=== PATIENT | female | born 1975 | race Caucasian/White ===

== ENCOUNTER 2016-12-17 18:07 | Emergency (ER) | payer MEDICAID ==
[~2016-12-17] VITALS: Ht 157.5 cm; Wt 57.5 kg
[~2016-12-17 18:07] MED LIST: AZIT250T94 PO; CIPR500T4 PO; HYDR-902 PO; IBUP-1542 PO; IBUP800T25 PO; PHEN-538 PO
[2016-12-17 18:15] VITALS: Ht 157.5 cm; Wt 57.5 kg
[2016-12-17] MEDS ORDERED: ACETAMINOPHEN 325 MG TAB PO ONE (20:00)
[2016-12-17] MEDS ORDERED: AMO500 PO (20:02)
[2016-12-17] MEDS ORDERED: IBUP-1542 PO (20:02)
--- NOTE | 2016-12-17 20:04 | ERD ---
ER Documentation Chief Complaint Date/Time DATE: 12/17/16 TIME: 20:03 Chief Complaint fever , body ache , headcahe , sore throat x 2 days HPI This 41-year-old female complains of fever, sore throat and body aches and bitemporal headache for the last 2 days. She denies cough, abdominal pain, urinary complaints, neck stiffness, rashes. ROS All systems reviewed and are negative except as per history of present illness. Medications Home Meds Active Scripts Amoxicillin* (Amoxicillin*) 500 Mg Cap, 500 MG PO TID for 10 Days, CAP Prov:BERNICE CASTILLO MD 12/17/16 Ibuprofen* (Motrin*) 600 Mg Tab, 600 MG PO Q6, #20 TAB Prov:BERNICE CASTILLO MD 12/17/16 Hydrocodone/Acetaminophen ([place] 10-325 Tablet) 1 Each Tablet, 1 TAB PO Q6H Y for PAIN, #7 TAB Prov:NIKKIOSISHANSTOLOS A. DO 04/19/16 Ibuprofen* (Motrin*) 800 Mg Tab, 800 MG PO Q6H Y for PAIN AND OR ELEVATED TEMP, #30 TAB Prov:LEKKOSISHANSTOLOS A. DO 04/19/16 Azithromycin* (Zithromax*) 250 Mg Tablet, 250 MG PO .SIVACK DIRECTED, #6 TAB TAKE 500 MG (2 TABS) THE FIRST DAY THEN 250 MG (1 TAB) DAYS 2-5 Prov:ISHAN QUICKSTOLOS A. DO 04/19/16 Phenazopyridine Hcl* (Pyridium*) 200 Mg Tab, 200 MG PO TID Y for burning with urination, #6 TAB Prov:MARLENE RAY DO 11/11/15 Ciprofloxacin Hcl* (Ciprofloxacin Hcl*) 500 Mg Tablet, 500 MG PO BID for 5 Days , TAB Prov:FLORMARLENE DO 11/11/15 Ibuprofen* (Motrin*) 600 Mg Tab, 600 MG PO Q6H Y for PAIN AND OR ELEVATED TEMP, #30 Prov:JAMIE HYATT PA-C 07/12/15 Ciprofloxacin Hcl* (Ciprofloxacin Hcl*) 500 Mg Tablet, 500 MG PO BID for 5 Days , TAB Prov:JAMIE HYATT PA-C 07/12/15 Allergies Allergies: Coded Allergies: No Known Drug Allergy (Verified Allergy, Unknown, 11/11/15) PMhx/Soc History of Surgery: No Anesthesia Reaction: No Hx Neurological Disorder: No Hx Respiratory Disorders: No Hx Cardiac Disorders: No Hx Psychiatric Problems: No Hx Miscellaneous Medical Probl: No Hx Alcohol Use: No Hx Substance Use: No Hx Tobacco Use: No Physical Exam Vitals Vital Signs Date Time Temp Pulse Resp B/P Pulse Ox O2 Delivery O2 Flow Rate FiO2 12/17/16 18:15 102.3 99 18 121/68 98 Physical Exam Const: [] Alert, [id number]. Head: Atraumatic Eyes: Normal Conjunctiva ENT: Normal External Ears, Nose and Mouth. TMs normal. Tonsils 3+ with erythema. Uvula midline and airway patent. There is tender anterior cervical lymphadenitis. Neck: Full range of motion..~ No meningismus. Resp: Clear to auscultation bilaterally Cardio: Regular rate and rhythm, no murmurs Abd: Soft, non tender, non distended. Normal bowel sounds Skin: No petechiae or rashes Back: No midline or flank tenderness Ext: No cyanosis, or edema Neur: Awake and alert Psych: Normal Mood and Affect Results 24 hrs Current Medications Medications (Trade) Dose Ordered Sig/Christine Route PRN Reason Start Time Stop Time Status Last Admin Dose Admin Acetaminophen (Tylenol Tab) 650 mg ONCE ONCE PO 12/17/16 20:00 12/17/16 20:01 DC Procedures/MDM Patient presents with signs of acute pharyngitis without evidence of abscess, airway obstruction, meningitis additional causes of present complaints. She will treated with amoxicillin and ibuprofen. She was given Tylenol here in the ED for her fever. The patient was stable with no new complaints during the ER course. Clinically, there is no current evidence to suggest meningitis, sepsis, acute abdomen, pneumonia, acute coronary syndrome, pulmonary embolism, or any other emergent condition appearing to require further evaluation or hospitalization. The patient should certainly return for any new or worsening symptoms per the aftercare instructions. They should otherwise follow-up with her primary care doctor for reevaluation this week. Departure Diagnosis: Primary Impression: Pharyngitis Pharyngitis/tonsillitis etiology: unspecified etiology Qualified Code: J02.9 - Pharyngitis, unspecified etiology Condition: Stable Patient Instructions: Fever Control (Adult), Pharyngitis, Strep (Presumed) Additional Instructions: Cheque otro vez con salazar doctor primario en el proximo moncada or regresa para mas o nueva simptomas. BERNICE CASTILLO MD December 17, 2016 20:04
[2016-12-17 20:27] VITALS: BP 123/65; PULSE 94; TEMP 101.6
== END 2016-12-17 20:27 | disposition home or self-care (01) ==
LOC: FTE 18:07
DX: J02.9 Acute pharyngitis, unspecified (principal)
CPT/HCPCS: Z7502; Z7610; 99283

== ENCOUNTER 2018-01-28 11:26 | Emergency (ER) | END 2018-01-28 13:40 | disposition home or self-care (01) ==

== ENCOUNTER 2018-04-21 14:51 | Emergency (ER) | END 2018-04-21 20:55 | disposition home or self-care (01) ==

== ENCOUNTER 2018-04-24 21:04 | Emergency (ER) | END 2018-04-25 00:36 | disposition home or self-care (01) ==

== ENCOUNTER 2018-05-07 22:38 | Emergency (ER) | END 2018-05-08 01:59 | disposition home or self-care (01) ==